=== PATIENT | female | born 1945 | race Caucasian/White ===

== ENCOUNTER 2023-06-08 15:25 | Emergency (ER) | payer OTHER ==
[2023-06-08] MEDS ORDERED: ACETAMINOPHEN 500 MG TABLET (FP) PO ONE (16:14)
[2023-06-08 16:15] VITALS: BMI 33.9
[2023-06-08 16:55] LABS: HEMATOCRIT 21.8 % (32.4-45.2); MCH 30.8 pg (25.7-33.7); MCHC 31.7 g/dl (32.0-36.0); MEAN CELL VOLUME 97.1 fl (80-96); MEAN PLT VOLUME 9.4 fl (7.5-11.1); PLATELET COUNT 293.4 10^3/uL (134-434); RBC 2.25 10^6/uL (3.60-5.2); RDW 15.6 % (11.6-15.6); WHITE BLOOD COUNT 11.6 10^3/uL (4.0-10.8)
[2023-06-08] MEDS ORDERED: ACETAMINOPHEN 500 MG TABLET (FP) ONE (17:03)
[2023-06-08 17:14] LABS: HEMOGLOBIN 6.9 G/dL (10.7-15.3)
[2023-06-08 17:24] LABS: ALBUMIN 3.8 g/dl (3.4-5.0); BILIRUBIN,TOTAL 0.2 mg/dl (0.2-1); CALCIUM 7.7 mg/dl (8.5-10.1); POTASSIUM 5.6 mmol/L (3.5-5.1); TOT PROT 5.9 g/dl (6.4-8.2)
[2023-06-08 17:40] LABS: PLATELET ESTIMATE ADEQUATE
[2023-06-08 17:57] LABS: CREATININE 11.3 mg/dl (0.6-1.3)
[2023-06-08] MEDS ORDERED: DEXTROSE 50%-WATER 25 GM/50 ML DISP.SYRIN ONE (21:13)
[2023-06-08] MEDS ORDERED: SODIUM BICARBONATE 8.4% 50 MEQ/50 ML VIAL ONE (21:13)
[2023-06-08] MEDS ORDERED: INSULIN REGULAR HUMAN 100 UNITS/ML *VIAL ONE (21:14)
[2023-06-08] MEDS ORDERED: CALCIUM GLUCONATE 10% - 1,000 MG/10 ML VIAL ONE (21:15)
[2023-06-08] MEDS ORDERED: SODIUM BICARBONATE 8.4% 50 MEQ/50 ML DISP.SYRIN IVPUSH ONE (21:24)
[2023-06-08] MEDS ORDERED: INSULIN REGULAR HUMAN 100 UNITS/ML *VIAL IVPUSH ONE (21:24)
[2023-06-08] MEDS ORDERED: DEXTROSE 50%-WATER - 25 GM/50 ML VIAL IVPUSH ONE (21:25)
[2023-06-08] MEDS ORDERED: CALCIUM GLUCONATE 10% - 1,000 MG/10 ML VIAL IVPUSH ONE (21:37)
[2023-06-08 22:24] VITALS: BP 122/66
[2023-06-08 23:36] VITALS: PULSE 75; RESP 13; TEMP 97.7
== END 2023-06-08 23:56 | disposition admitted as inpatient to this hospital (09) ==
LOC: FER 15:25
PROC: 3E033GC Introduction of Other Therapeutic Substance into Peripheral Vein, Percutaneous Approach (ICD-10-PCS; principal; 2023-06-08)
PROC: 3E033GC Introduction of Other Therapeutic Substance into Peripheral Vein, Percutaneous Approach (ICD-10-PCS; 2023-06-08)
PROC: 3E013VG Introduction of Insulin into Subcutaneous Tissue, Percutaneous Approach (ICD-10-PCS; 2023-06-08)
PROC: 3E033GC Introduction of Other Therapeutic Substance into Peripheral Vein, Percutaneous Approach (ICD-10-PCS; 2023-06-08)
DX: R53.83 Other fatigue (principal); B02.9 Zoster without complications; N17.9 Acute kidney failure, unspecified; D64.9 Anemia, unspecified; R77.8 Other specified abnormalities of plasma proteins; R21 Rash and other nonspecific skin eruption; M54.6 Pain in thoracic spine; J18.9 Pneumonia, unspecified organism; Z20.822 Contact with and (suspected) exposure to COVID-19
CPT/HCPCS: 0241U-QW; 36415; 36430; 71045-TC-FY; 80053; 81003; 81015; 82728; 83010; 83540; 83550; 83615; 84466; 84484; 85027; 85045; 86850; 86900; 86901; 86922; 87086; 87186; 93005; 99285-25